=== PATIENT | female | born 2005 | race Hispanic/Latino ===

== ENCOUNTER 2024-12-25 07:42 | Emergency (ER) | payer SELFPAY ==
[2024-12-25] MEDS ORDERED: Acetaminophen 500 MG TAB ONE (08:10)
[2024-12-25 08:34] LABS: Glucose, Urine (Dipstick) Normal (Negative); Leukocyte Negative (Negative); Protein, Urine (Dipstick) Negative (Neg-Trace); Specific Gravity, Urine 1.010 (1.005-1.030)
[2024-12-25 08:51] LABS: Bacteria/HPF 2+ HPF (None Seen); CAUTI Indications for Culture Pelvic or flank pain; RBC/HPF 0-3 HPF (0-3); WBC/HPF 0-3 HPF (0-3)
[2024-12-25 08:52] LABS: Urine Culture Reflex No No
== END 2024-12-25 10:50 | disposition home or self-care (01) ==
LOC: CSHERS 07:42
DX: O98.512 Other viral diseases complicating pregnancy, second trimester (principal); B34.9 Viral infection, unspecified; Z3A.19 19 weeks gestation of pregnancy
CPT/HCPCS: 81001; 87426; 99284

== ENCOUNTER 2025-05-03 14:15 | Inpatient (IN) | payer MEDICAID, OTHER ==
[2025-05-03] MEDS ORDERED: hydrALAZINE 20 MG/ML VIAL SLOW IVP PRN (14:56)
[2025-05-03] MEDS ORDERED: Acetaminophen 500 MG TAB PO PRN (14:56)
[2025-05-03] MEDS ORDERED: Ondansetron PF 4 MG/2 ML Vial IVP PRN ×3 (14:56→20:20)
[2025-05-03] MEDS ORDERED: Methylergonovine 0.2 MG/ML VIAL IM PRN (14:56)
[2025-05-03] MEDS ORDERED: Carboprost 250 MCG/ML AMP IM PRN (14:56)
[2025-05-03] MEDS ORDERED: Tranexamic Acid 1,000 MG/10 ML VIAL IVP PRN (14:56)
[2025-05-03] MEDS ORDERED: Diphenoxylate HCl/Atropine Tablet PO PRN ×2 (14:56)
[2025-05-03] MEDS ORDERED: Oxytocin 30 units/NS 500 ML 500 ML IV SCH ×3 (15:00)
[2025-05-03 15:28] VITALS: BMI 32.7
[2025-05-03 15:49] LABS: Hematocrit 36.2 % (34.9-44.5); Hemoglobin 12.5 g/dL (12.0-15.5); Mean Corpuscular Hemoglobin 30.9 pg (27.0-33.0); Mean Corpuscular Volume 89.4 fL (81.6-98.3); Platelet Count 379 10x3/uL (150-450); Red Blood Cell (RBC) Count 4.05 10x6/uL (3.90-5.03); White Blood Cell (WBC) Count 11.43 10x3/uL (3.5-10.5)
[2025-05-03 16:24] LABS: Syphilis Antibody Index 0.03 S/CO (<1.00 Non-Reactive)
[2025-05-03 16:26] LABS: Hep B Surf Ag - L&D Non-Reactive S/CO (NonReactive)
[2025-05-03] MEDS: fentaNYL/Ropivacaine Epidural 100 ML ONE (17:07)
[2025-05-03] MEDS ORDERED: diphenhydrAMINE 50 MG/ML VIAL IVP PRN ×2 (17:41→20:20)
[2025-05-03] MEDS ORDERED: Acetaminophen 325 MG TAB PO PRN (17:41)
[2025-05-03] MEDS ORDERED: Communication Order-Pharmacy FS SCH ×2 (17:45→20:30)
[2025-05-03] MEDS ORDERED: fentaNYL 2 mcg/Ropivacaine 0.2% Epidural 100 ML CADD EPIDURAL SCH (17:45)
[2025-05-03] MEDS ORDERED: diphenhydrAMINE 50 MG/ML VIAL IM PRN (20:20)
[2025-05-03] MEDS ORDERED: diphenhydrAMINE 25 MG CAP PO PRN (20:20)
[2025-05-03] MEDS ORDERED: fentaNYL Citrate/PF 55 ML IV SCH (20:30)
[2025-05-03] MEDS: fentaNYL Citrate/PF 55 ML IV SCH (21:21)
[2025-05-03] MEDS: Lidocaine 1% (PF) 30 ML VIAL SC PRN (22:55)
[2025-05-04] MEDS ORDERED: diphenhydrAMINE 25 MG CAP PO PRN (00:26)
[2025-05-04] MEDS ORDERED: Milk Of Magnesia 30 ML UDCUP PO PRN (00:26)
[2025-05-04] MEDS ORDERED: Ondansetron PF 4 MG/2 ML Vial IVP PRN (00:26)
[2025-05-04] MEDS ORDERED: HYDROcodone/Acetaminophen 5/325 mg Tablet PO PRN (00:26)
[2025-05-04] MEDS ORDERED: hydrALAZINE 20 MG/ML VIAL SLOW IVP PRN (00:26)
[2025-05-04] MEDS ORDERED: Bisacodyl 10 MG SUPP PR PRN (00:26)
[2025-05-04] MEDS ORDERED: Lanolin Ointment 7 GM TUBE TOP PRN (00:26)
[2025-05-04] MEDS: Ibuprofen 800 MG TAB PO SCH (03:23)
[2025-05-04] MEDS: Benzocaine-Menthol 82.5 ML CAN TOP PRN (03:24)
[2025-05-04] MEDS: Ferrous Sulfate 325 MG TAB PO SCH (07:56)
[2025-05-04] MEDS ORDERED: Lidocaine 2% MPF 10 ML AMP (For Epidural Use) ONE (19:41)
[2025-05-05 08:11] VITALS: BP 107/68; TEMP 97.9
== END 2025-05-05 18:25 | disposition home or self-care (01) | DRG 807 ==
LOC: CSHLD/OP 14:15 → CSHLD 15:23 → CSHPP 05-04 00:45
PROVIDERS: ADMIT Family Medicine; ATTEND Family Medicine
PROC: 10E0XZZ Delivery of Products of Conception, External Approach (ICD-10-PCS; principal; 2025-05-03)
PROC: 10907ZC Drainage of Amniotic Fluid, Therapeutic from Products of Conception, Via Natural or Artificial Opening (ICD-10-PCS; 2025-05-03)
PROC: 3E033XZ Introduction of Vasopressor into Peripheral Vein, Percutaneous Approach (ICD-10-PCS; 2025-05-03)
PROC: 0UQGXZZ Repair Vagina, External Approach (ICD-10-PCS; 2025-05-03)
DX: O71.4 Obstetric high vaginal laceration alone (principal); Z37.0 Single live birth; Z3A.38 38 weeks gestation of pregnancy
CPT/HCPCS: 36415; 85027; 86780; 86850; 86900; 86901; 87340; 99285; J0595; J0665; J2003